=== PATIENT | female | born 1970 | race Caucasian/White ===

== ENCOUNTER 2016-09-29 03:48 | Emergency (ER) | payer SELFPAY ==
[~2016-09-29] VITALS: Ht 170.2 cm; Wt 63.5 kg
--- NOTE | 2016-09-29 03:50 | NUR ---
PT TO ER [facility] AND [employer] FOR ETOH. PER EMS PT HAD TAKEN [facility] HOME BUT WAS UNABLE TO ENTER HOUSE. [facility] AND [facility] WERE CALLED AND PT WAS TRANSPORTED TO HOSPITAL FOR ALCOHOL INTOXICATION. PT BELIGERENT AND UNCOOPERATIVE UPON ARRIVAL. PT VITAL SIGNS STABLE. PT AGITATED AND SCREAMING AT STAFF. DR ARTEAGA AT BEDSIDE FOR EXAM .
--- NOTE | 2016-09-29 04:21 | NUR ---
PT CONTINUING TO SCREAM AND CURSE AT STAFF. PT REMOVING MONITORING EQUIPMENT. PT IS NOT REDIRECTIBLE AND CONTINUES TO BE AGITATED. DR ARTEAGA NOTIFIED.
[2016-09-29] MEDS ORDERED: LORAZEPAM INJ 2 MG/ML VIAL ONE (04:27)
[2016-09-29] MEDS ORDERED: LORAZEPAM INJ 2 MG/ML VIAL IM ONE (04:30)
--- NOTE | 2016-09-29 04:34 | NUR ---
PT MEDICATED ORDERED BY DR ARTEAGA.
[2016-09-29 04:39] VITALS: BP 113/77
--- NOTE | 2016-09-29 09:00 | NUR ---
Patient eloped from facility. ER MD notified.
== END 2016-09-29 09:00 | disposition left against medical advice (07) ==
LOC: ER 03:52
DX: F10.129 Alcohol abuse with intoxication, unspecified (principal)
CPT/HCPCS: 96372; 99283; A4606; J2060; Z7610